=== PATIENT | male | born 2000 | race Caucasian/White ===

== ENCOUNTER 2020-11-15 05:13 | Emergency (ER) | payer SELFPAY ==
[~2020-11-15] VITALS: Ht 182.9 cm; Wt 67.3 kg
[2020-11-15] MEDS ORDERED: AMOXICILLIN 8751 TAB PO ×3 (08:55→10:07)
[2020-11-15] MEDS ORDERED: NORCO 325 MG-51 TAB PO ×3 (08:55→10:07)
[2020-11-15 09:33] VITALS: BP 165/63; PULSE 86
== END 2020-11-15 09:45 | disposition home or self-care (01) ==
LOC: COL.ER 05:13
DX: S09.93XA Unspecified injury of face, initial encounter (principal); S01.512A Laceration without foreign body of oral cavity, initial encounter; Y04.0XXA Assault by unarmed brawl or fight, initial encounter
CPT/HCPCS: J2270